=== PATIENT | female | born 1975 | race Caucasian/White ===

== ENCOUNTER 2020-09-10 09:22 | Emergency (ER) | payer OTHER, SELFPAY ==
[2020-09-10 09:25] VITALS: BP 176/104; PULSE 86; RESP 18; TEMP 36.9; O2SAT 98; BMI 25.0
--- NOTE | 2020-09-10 09:56 | HMH.EDUTC ---
[facility] [place] Clinical Impression: Encounter for laboratory testing for COVID-19 virus, Viral syndrome Disposition: Home, Self-Care Condition on Discharge: Good Instructions: DI for COVID-19 (Suspected or Confirmed ), Coronavirus Disease 2019, Preventing the Spread of Coronavirus Discharge Instructions Additional Instructions: *Monitor Temp, Over the counter Motrin or Tylenol as directed/as needed Tylenol every 4 hours and Motrin every 6 hours (as long as your family doctor has told you that you can take it) for fever or pain. and straight to ER if unable to lower temp less than 101.0 after medication given *Warm salt water gargles may help to soothe the throat *Throat Lozenges *Warm fluids like tea with honey may help to soothe the throat *Sleep elevated *Humidifier/Vaporizer Make sure to follow up with your Family Doctor for further evaluation of your blood pressure Follow up IMMEDIATELY for new or worsening symptoms or no Noticeable improvement over the next 48-72 hours. 911 for difficulty breathing or swallowing You were tested for today for COVID19 your test result should be back in the next 24-48 hours, you may call to the [facility] to see if your test results are back in the next 48 hours [phone] [facility] hours are 9am-9pm You was given a handout with instructions for Self Quarantine and Self isolation for while you wait on test results and what to do if they are positive If you are positive the Health Dept will be contacting you also Referrals: Shari Stapleton [Primary Care Provider] - As needed Forms: Work/School Release Time of Disposition: 10:17 Medical Decision Making - Jabari Inquiry Pt receiving controlled substance: No Jabari was queried for this patient: No Vital Signs: 09/10/20 09:25 09/10/20 10:09 Temperature 98.4 F 98.4 F Temperature Source Oral Pulse Rate 86 Pulse Rate [Right Brachial] 86 Respiratory Rate 18 18 Blood Pressure 184/97 H Blood Pressure [Right Arm] 176/104 H Blood Pressure Mean [Right Arm] 128 Blood Pressure Source [Right Arm] Automatic Cuff Blood Pressure Position [Right Arm] Sitting 02 Sat by Pulse Oximetry 98 Oxygen Delivery Method Room Air Orders (Tests/Meds): ORDERS Category Date Time Status Covid-19 Nasal PCR ([facility]) Routine Lab 09/10/20 09:38 Received Medical Decision Narrative: Patient blood pressure elevated Patient reports that she was stressed about the test State that she did not want to get transferred to the ED she would make appointment with her PCP for further evaluation [facility] [place] HPI - General Stated complaint: Covid Test Time Seen by Provider: 09/10/20 09:56 Mode of Arrival: Ambulatory Source of Information: Patient Limitations: No Limitations Description of Symptoms (Recalled from Triage Doc. by RN): COVID TEST D/T EXPOSURE 1 WEEK AGO. C/O HEADACHE, SORE THROAT, NAUSEA AND FEVER X 5 DAYS HEENT Symptoms (Recalled from RN notes): No Resp Symptoms (Recalled from RN notes): No Skin Symptoms (Recalled from RN notes): No MS Symptoms (Recalled from RN notes): No Functional Status (Recalled from RN notes): WNL - History of Present Illness Provider Complaint: Patient state that multiple people at her work has tested positive for COVID States that she has been having body aches, chills, headache sore throat and fever State that she has started having some nausea and her taste and smell is off State that she was worried that she may have COVID so she came in to get tested - Related Data Allergies Allergy/AdvReac Type Severity Reaction Status Date / Time No Known Allergies Allergy Verified 09/10/20 09:52 - Worker's Comp Is this a Worker's Comp case?: No [facility] History - Hepatitis A Screen Drug use history?: No High risk sexual behaviors?: No History of sexually transmitted infection?: No Currently employed?: No Childcare worker?: No Do you have indoor plumbing?: Yes Do you have electricity?: Yes Attestation statement:: This patien
[2020-09-10 10:09] VITALS: BP 184/97; PULSE 86; RESP 18; TEMP 36.9; O2SAT 98
[2020-09-10 10:15] LABS: UTC Strep Screen (Rapid) Negative (Negative)
== END 2020-09-10 10:23 | disposition home or self-care (01) ==
PROVIDERS: Emergency Provider Nurse Practitioner; PCP Family Medicine
DX: Z20.822 Contact with and (suspected) exposure to COVID-19 (principal); R50.9 Fever, unspecified; R51.9 Headache, unspecified
CPT/HCPCS: 87880; 99202; G0463; U0003